=== PATIENT | male | born 1975 | race Caucasian/White ===

== ENCOUNTER 2023-01-12 21:39 | Inpatient (IN) | payer OTHER ==
[2023-01-12] MEDS ORDERED: ACETAMINOPHEN 1000 MG/100 ML BAG IVPB ONE (22:03)
[2023-01-12] MEDS ORDERED: SODIUM CHLORIDE 0.9% 500 ML INFUS.BAG IV ONE (22:03)
[2023-01-12 22:20] LABS: BASO % 0.7 % (0-2.0); EOS % 1.5 % (0-4.5); HEMATOCRIT 47.8 % (35.4-49); HEMOGLOBIN 16.7 GM/dL (11.7-16.9); MCH 30.7 pg (25.7-33.7); MCHC 34.9 g/dl (32.0-35.9); MEAN PLT VOLUME 9.8 fl (7.5-11.1); NEUT % 52.8 % (42.8-82.8); PLATELET COUNT 214 10^3/uL (134-434); RBC 5.43 M/mm3 (4.00-5.60); WHITE BLOOD COUNT 6.8 K/mm3 (4.0-10.0)
[2023-01-12 22:41] LABS: CHLORIDE 102 mmol/L (98-107); SODIUM 133 mmol/L (136-145)
[2023-01-12 22:43] LABS: ALBUMIN 3.6 g/dl (3.4-5.0); ANION GAP 8 MMOL/L (8-16); BLOOD UREA NITROGEN 13.2 mg/dL (7-18); CALCIUM 8.3 mg/dL (8.5-10.1); CO2 23 mmol/L (21-32)
[2023-01-12 22:46] LABS: CREATININE 0.8 mg/dL (0.55-1.3)
[2023-01-12 22:48] LABS: BILIRUBIN,TOTAL 0.5 mg/dL (0.2-1)
[2023-01-12 22:50] LABS: ALK PHOS 153 U/L (45-117)
[2023-01-12 22:51] LABS: GLUCOSE,RANDOM 447 mg/dL (74-106); SGOT/AST 23 U/L (15-37); SGPT/ALT 42 U/L (13-61); TOT PROT 7.4 g/dl (6.4-8.2)
[2023-01-12 22:59] LABS: ACTIVATED PTT 32.2 SECONDS (25.2-36.5); INR 0.97 (0.83-1.09); PROTHROMBIN TIME (PATIENT) 11.2 SEC (9.7-13.0)
[2023-01-13] MEDS ORDERED: INSULIN (NOVOLOG) ASPART 100 UNITS/ML 10ML VIAL SQ ONE (00:15)
[2023-01-13] MEDS ORDERED: DEXTROSE 50%-WATER 25 GM/50 ML DISP.SYRIN IVPUSH PRN (00:34)
[2023-01-13 06:19] LABS: GAMMA GLUTAMYL TRANSPEPTIDASE 85 U/L (5-85)
[2023-01-13] MEDS: SODIUM CHLORIDE 1,000 ML IV SCH ×2 (06:26→16:53)
[2023-01-13 06:37] LABS: BASO % 0.4 % (0-2.0); EOS % 0.2 % (0-4.5); HEMATOCRIT 47.6 % (35.4-49); HEMOGLOBIN 16.5 GM/dL (11.7-16.9); LYMPH % 10.7 % (8-40); MCH 31.3 pg (25.7-33.7); MCHC 34.5 g/dl (32.0-35.9); MEAN CELL VOLUME 90.5 fl (80-96); MEAN PLT VOLUME 9.3 fl (7.5-11.1); MONO % 5.3 % (3.8-10.2); NEUT % 83.4 % (42.8-82.8); PLATELET COUNT 241 10^3/uL (134-434); RBC 5.26 M/mm3 (4.00-5.60); RDW 13.2 % (11.9-15.9); WHITE BLOOD COUNT 11.3 K/mm3 (4.0-10.0)
[2023-01-13 06:54] LABS: CALCIUM 8.9 mg/dL (8.5-10.1)
[2023-01-13 06:55] LABS: ALBUMIN 3.9 g/dl (3.4-5.0); BLOOD UREA NITROGEN 12.6 mg/dL (7-18)
[2023-01-13 06:59] LABS: CREATININE 0.5 mg/dL (0.55-1.3)
[2023-01-13 07:01] LABS: BILIRUBIN,TOTAL 0.6 mg/dL (0.2-1); TOT PROT 7.6 g/dl (6.4-8.2)
[2023-01-13] MEDS: INSULIN SLIDING SCALE (NOVOLOG) 1 VIAL SQ SCH ×3 (07:23→16:55)
[2023-01-13] MEDS ORDERED: ENOXAPARIN NA (PORCINE) 40 MG/0.4 ML DISP.SYRIN SQ ONE (08:59)
[2023-01-13] MEDS ORDERED: INSULIN (LEVEMIR) 100 UNITS/ML UNITS SQ ONE ×2 (09:00→23:04)
[2023-01-13] MEDS: INSULIN (LEVEMIR) 100 UNITS/ML UNITS SQ SCH ×2 (09:07→23:08)
[2023-01-13] MEDS: ENOXAPARIN NA (PORCINE) 40 MG/0.4 ML DISP.SYRIN SQ SCH (09:08)
[2023-01-13 09:30] LABS: EPI CELLS 4 /uL (0-25.1); HYALINE CASTS 2 /uL (0-3.1); URINE APPEARANCE CLEAR; URINE BACTERIA 7 /uL (0-1359); URINE BILIRUBIN NEGATIVE (NEGATIVE); URINE COLOR YELLOW; URINE GLUCOSE (UA) 3+ (NEGATIVE); URINE KETONE TRACE (NEGATIVE); URINE LEUK ESTERASE NEGATIVE (NEGATIVE); URINE NITRITE NEGATIVE (NEGATIVE); URINE PROTEIN 1+ (NEGATIVE); URINE UROBILINOGEN 0.2 mg/dL (0.2-1.0); URINE WBC 9 /uL (0-25.8)
[2023-01-13 09:55] LABS: URINE RBC 81 /uL (0-23.9)
[2023-01-13] MEDS ORDERED: PANTOPRAZOLE SODIUM 40 MG VIAL ONE (11:31)
[2023-01-13] MEDS: PANTOPRAZOLE SODIUM 40 MG VIAL IVPUSH SCH (11:35)
[2023-01-13 16:19] VITALS: BMI 26.4
[2023-01-14] MEDS: SODIUM CHLORIDE 1,000 ML IV SCH (01:48)
[2023-01-14] MEDS ORDERED: INSULIN (NOVOLOG) ASPART 100 UNITS/ML 10ML VIAL ONE ×4 (06:36→21:17)
[2023-01-14] MEDS: INSULIN SLIDING SCALE (NOVOLOG) 1 VIAL SQ SCH ×3 (06:37→17:42)
[2023-01-14] MEDS ORDERED: ATORVASTATIN CA 20 MG TABLET (FP) PO ONE (08:50)
[2023-01-14] MEDS: PANTOPRAZOLE SODIUM 40 MG VIAL IVPUSH SCH (10:57)
[2023-01-14] MEDS: INSULIN (LEVEMIR) 100 UNITS/ML UNITS SQ SCH ×2 (10:57→22:03)
[2023-01-14] MEDS: ENOXAPARIN NA (PORCINE) 40 MG/0.4 ML DISP.SYRIN SQ SCH (10:57)
[2023-01-14] MEDS ORDERED: INSULIN (LEVEMIR) 100 UNITS/ML UNITS SQ ONE (11:14)
[2023-01-15] MEDS: INSULIN SLIDING SCALE (NOVOLOG) 1 VIAL SQ SCH ×2 (06:31→11:09)
[2023-01-15] MEDS: SODIUM CHLORIDE 1,000 ML IV SCH (06:34)
[2023-01-15 07:38] LABS: BASO % 0.6 % (0-2.0); HEMATOCRIT 44.2 % (35.4-49); HEMOGLOBIN 15.3 GM/dL (11.7-16.9); LYMPH % 24.6 % (8-40); MCH 31.3 pg (25.7-33.7); MCHC 34.6 g/dl (32.0-35.9); MEAN CELL VOLUME 90.7 fl (80-96); MEAN PLT VOLUME 9.2 fl (7.5-11.1); MONO % 6.7 % (3.8-10.2); NEUT % 67.1 % (42.8-82.8); PLATELET COUNT 250 10^3/uL (134-434); RBC 4.87 M/mm3 (4.00-5.60); RDW 13.3 % (11.9-15.9); WHITE BLOOD COUNT 7.1 K/mm3 (4.0-10.0)
[2023-01-15 08:05] LABS: CALCIUM 8.6 mg/dL (8.5-10.1)
[2023-01-15 08:06] LABS: ALBUMIN 3.2 g/dl (3.4-5.0); BLOOD UREA NITROGEN 8.2 mg/dL (7-18)
[2023-01-15 08:09] LABS: CREATININE 0.6 mg/dL (0.55-1.3); PHOSPHOROUS 3.2 mg/dL (2.5-4.9)
[2023-01-15 08:11] LABS: BILIRUBIN,TOTAL 0.9 mg/dL (0.2-1); TOT PROT 6.5 g/dl (6.4-8.2)
[2023-01-15] MEDS: ENOXAPARIN NA (PORCINE) 40 MG/0.4 ML DISP.SYRIN SQ SCH (09:13)
[2023-01-15] MEDS: INSULIN (LEVEMIR) 100 UNITS/ML UNITS SQ SCH (09:13)
[2023-01-15] MEDS: PANTOPRAZOLE SODIUM 40 MG VIAL IVPUSH SCH (09:14)
[2023-01-15 10:10] VITALS: BP 125/69; PULSE 80; RESP 20; TEMP 98.4
[2023-01-15] MEDS ORDERED: ATORVASTATIN CA 20 MG TABLET (FP) PO SCH (22:00)
== END 2023-01-15 14:35 | disposition home or self-care (01) | DRG 816 ==
LOC: JER 21:39 → JERBED 23:18 → J7W 01-13 15:13 → J6S 01-14 18:37
PROVIDERS: ADMIT Internal Medicine; ATTEND Internal Medicine
PROC: 0DJ08ZZ Inspection of Upper Intestinal Tract, Via Natural or Artificial Opening Endoscopic (ICD-10-PCS; principal; 2023-01-13 13:30)
DX: T65.891A Toxic effect of other specified substances, accidental (unintentional), initial encounter (principal); E11.9 Type 2 diabetes mellitus without complications; E78.5 Hyperlipidemia, unspecified; E66.9 Obesity, unspecified; Z68.26 Body mass index [BMI] 26.0-26.9, adult; J98.11 Atelectasis; K22.89 Other specified disease of esophagus; Y92.89 Other specified places as the place of occurrence of the external cause
CPT/HCPCS: 0241U-QW; 36415; 71045-TC-FY; 71250-TC; 80053; 80061; 81003; 82962; 82977; 83036; 83605; 83735; 84100; 84443; 85025; 85610; 85730; 86140; 86850; 86900; 86901; 93005; 93010; 99285-25